=== PATIENT | female | born 1935 | race Caucasian/White ===

== ENCOUNTER → 2020-08-20 | Outpatient (CLI) | payer MEDICARE ==
[~2020-08-20] MED LIST: ASPI-1197 PO; CETI10TA57 PO; CLON-465 PO; CLOP75TA14 PO; DIPERA PO; EZET10TA13 PO; FERR-82 PO; FOLI1TAB85 PO; FURO20TA4 PO; HYDR-4153 PO; INSU100I3 SQ; INSU200I4 SQ; Isosorbide Mononitrate PO; LEVO500T2 PO; METO100T14 PO; OMEP40CA13 PO; PROC5TAB12 PO; SIMV-43 PO; [UNRECOGNIZED DRUG - OTHER] PO; [UNRECOGNIZED DRUG - OTHER] PO
== END | disposition home or self-care (01) ==
LOC: SHCH 09:59
PROVIDERS: ATTEND Internal Medicine Cardiovascular Disease
DX: I07.1 Rheumatic tricuspid insufficiency (principal); I25.10 Atherosclerotic heart disease of native coronary artery without angina pectoris; I87.2 Venous insufficiency (chronic) (peripheral); E66.9 Obesity, unspecified; E78.5 Hyperlipidemia, unspecified; E11.9 Type 2 diabetes mellitus without complications; I27.20 Pulmonary hypertension, unspecified
CPT/HCPCS: 93306; 93356; 93970

== ENCOUNTER → 2021-01-15 | Outpatient (CLI) | payer MEDICARE ==
[~2021-01-15] MED LIST changes: -OMEP40CA13 PO; +OMEP40CA21 PO
== END | disposition home or self-care (01) ==
LOC: SHCH 11:25
PROVIDERS: ATTEND Internal Medicine Cardiovascular Disease
DX: I65.23 Occlusion and stenosis of bilateral carotid arteries (principal)
CPT/HCPCS: 93880

== ENCOUNTER 2021-06-03 11:11 | Inpatient (IN) | payer MEDICARE ==
[~2021-06-03] VITALS: Ht 154.9 cm; Wt 63.9 kg
[2021-06-03 11:32] LABS: BASOPHILS % (AUTO) 0.3 % (0.0-5.0); HEMATOCRIT 33.4 % (36-48); LYMPHOCYTES % (AUTO) 21.9 % (21.0-51.0); MEAN CORPUSCULAR HGB CONC 31.7 g/dL (32.0-36.0); MEAN CORPUSCULAR VOLUME 94.6 fL (79-99); MONOCYTES % (AUTO) 7.2 % (3.0-13.0); PLATELET COUNT (AUTO) 231 K/uL (130-400); RED BLOOD CELL COUNT(AUTO) 3.53 MIL/uL (4.00-5.50); RED CELL DISTRIBUTION WIDTH 13.2 % (11.0-15.5)
[2021-06-03 11:40] LABS: CREATININE 4.4 mg/dL (0.5-1.5); POTASSIUM 3.8 mmol/L (3.5-5.1)
[2021-06-03 11:45] LABS: ALBUMIN 3.4 g/dL (3.5-5.0); BILIRUBIN,TOTAL 0.4 mg/dL (0.2-1.0)
[2021-06-03 12:07] LABS: INR 1.03 (0.85-1.15); PROTHROMBIN TIME 11.2 SEC (9.6-11.6)
[2021-06-03 14:00] LABS: MAGNESIUM 2.3 mg/dL (1.80-2.40)
[2021-06-03] MEDS ORDERED: DEXTROSE 50%-WATER 50 ML DISP.SYRIN IV PRN (16:00)
[2021-06-03] MEDS ORDERED: ONDANSETRON 4MG INJ IVP PRN (16:00)
[2021-06-03] MEDS ORDERED: ACETAMINOPHEN 325 MG TAB PO PRN (16:00)
[2021-06-03] MEDS ORDERED: GLUCAGON 1MG KIT 1 MG ML IM PRN (16:00)
[2021-06-03] MEDS: INSULIN HUMULIN R 100 UNIT/ML 3ML SQ SCH ×2 (18:45→21:27)
[2021-06-04 05:15] LABS: BASOPHILS % (AUTO) 0.5 % (0.0-5.0); HEMATOCRIT 33.2 % (36-48); LYMPHOCYTES % (AUTO) 25.3 % (21.0-51.0); MEAN CORPUSCULAR HEMOGLOBIN 30.1 pg (27.0-33.0); MEAN CORPUSCULAR HGB CONC 32.5 g/dL (32.0-36.0); MEAN CORPUSCULAR VOLUME 92.5 fL (79-99); MONOCYTES % (AUTO) 10.1 % (3.0-13.0); NEUTROPHILS % (AUTO) 59.6 % (40.0-77.0); PLATELET COUNT (AUTO) 188 K/uL (130-400); RED BLOOD CELL COUNT(AUTO) 3.59 MIL/uL (4.00-5.50); WHITE BLOOD COUNT (AUTO) 8.7 K/uL (4.8-10.8)
[2021-06-04 05:27] LABS: ALBUMIN 3.3 g/dL (3.5-5.0); BILIRUBIN,TOTAL 0.4 mg/dL (0.2-1.0); CREATININE 3.9 mg/dL (0.5-1.5); POTASSIUM 3.6 mmol/L (3.5-5.1); TOTAL PROTEIN, SERUM 6.9 g/dL (6.0-8.3)
[2021-06-04] MEDS: INSULIN HUMULIN R 100 UNIT/ML 3ML SQ SCH ×4 (07:30→21:54)
[2021-06-04] MEDS ORDERED: PANTOPRAZOLE 40 MG TAB DR PO SCH (09:00)
[2021-06-04] MEDS ORDERED: LABETALOL HCL 100 MG TABLET ONE (10:25)
[2021-06-04] MEDS: 0.9%NACL 1000ML 1,000 ML IV SCH ×4 (10:27→21:54)
[2021-06-04] MEDS: ENOXAPARIN SODIUM 30 MG/0.3 ML SQ SCH (10:27)
[2021-06-04] MEDS ORDERED: LABETALOL HCL 200 MG TABLET ONE (10:52)
[2021-06-04] MEDS: LABETALOL HCL 200 MG TABLET PO SCH ×2 (13:26→21:27)
[2021-06-04] MEDS ORDERED: AMLO5TAB5 PO (18:02)
[2021-06-04] MEDS ORDERED: INSU100I26 SQ (18:02)
[2021-06-04] MEDS ORDERED: CALC667C10 PO (18:04)
[2021-06-04] MEDS ORDERED: POTA10CA44 PO (18:12)
[2021-06-04] MEDS ORDERED: FURO40TA5 PO (18:12)
[2021-06-04] MEDS ORDERED: METO100T14 PO (18:12)
[2021-06-04] MEDS ORDERED: SIMV-43 PO (18:12)
[2021-06-04] MEDS ORDERED: FOLI1TAB85 PO (18:12)
[2021-06-04] MEDS ORDERED: NON-FORMULARY MEDICATION 1 EACH (Cetirizine HCl 10 MG) PO PRN (19:00)
[2021-06-04] MEDS ORDERED: CETIRIZINE HCL 5 MG TABLET PO PRN (19:30)
[2021-06-04] MEDS ORDERED: NON-FORMULARY MEDICATION 1 EACH (Ferrous Sulfate (Iron) 325 MG) PO SCH (21:00)
[2021-06-04 21:09] LABS: CREATININE,SERUM FOR CRCL 3.9 mg/dL (0.6-1.3)
[2021-06-04] MEDS: CALCIUM AC 667MG CAP PO SCH (21:27)
[2021-06-04] MEDS: FUROSEMIDE 40 MG TABLET PO SCH (21:27)
[2021-06-04] MEDS: FERROUS SULFATE 325 MG TABLET.DR PO SCH (21:27)
[2021-06-05] VITALS (7 sets, daily range): BP systolic 113–194; BP diastolic 47–81
[2021-06-05 00:12] LABS: CREATININE,URINE RANDOM 45 mg/dL (30-135); SODIUM,URINE RANDOM 70 mmol/l (40-220)
[2021-06-05 03:39] LABS: BASOPHILS % (AUTO) 0.6 % (0.0-5.0); EOSINOPHILS % (AUTO) 3.3 % (0.0-8.0); HEMATOCRIT 28.9 % (36-48); LYMPHOCYTES % (AUTO) 23.4 % (21.0-51.0); MEAN CORPUSCULAR HEMOGLOBIN 30.2 pg (27.0-33.0); MEAN CORPUSCULAR HGB CONC 31.5 g/dL (32.0-36.0); NEUTROPHILS % (AUTO) 63.2 % (40.0-77.0); PLATELET COUNT (AUTO) 192 K/uL (130-400); RED BLOOD CELL COUNT(AUTO) 3.01 MIL/uL (4.00-5.50); WHITE BLOOD COUNT (AUTO) 8.2 K/uL (4.8-10.8)
[2021-06-05 03:49] LABS: CREATININE 3.8 mg/dL (0.5-1.5); POTASSIUM 3.3 mmol/L (3.5-5.1)
[2021-06-05] MEDS: 0.9%NACL 1000ML 1,000 ML IV SCH ×3 (05:16→21:30)
[2021-06-05] MEDS: INSULIN HUMULIN R 100 UNIT/ML 3ML SQ SCH ×4 (07:30→21:41)
[2021-06-05] MEDS ORDERED: NON-FORMULARY MEDICATION 1 EACH (Potassium Chloride 10 MEQ) PO SCH (08:00)
[2021-06-05] MEDS ORDERED: ISOSORBIDE MONONITRATE 30 MG PO SCH (09:00)
[2021-06-05] MEDS ORDERED: NON-FORMULARY MEDICATION 1 EACH (Vit B Cmplx 3/FA/Vit C/Biotin (Rena-Vite Rx Tablet) 1 EAC PO SCH (09:00)
[2021-06-05] MEDS ORDERED: NON-FORMULARY MEDICATION 1 EACH (Omeprazole 40 MG) PO SCH (09:00)
[2021-06-05] MEDS: ENOXAPARIN SODIUM 30 MG/0.3 ML SQ SCH (09:34)
[2021-06-05] MEDS: CLOPIDOGREL 75MG TAB PO SCH (09:35)
[2021-06-05] MEDS: CALCIUM AC 667MG CAP PO SCH ×3 (09:35→21:30)
[2021-06-05] MEDS: FUROSEMIDE 40 MG TABLET PO SCH ×2 (09:36→21:29)
[2021-06-05] MEDS: Vitamin B Complex/Vit C/Folic Acid PO SCH (09:37)
[2021-06-05] MEDS: LABETALOL HCL 200 MG TABLET PO SCH ×3 (09:37→21:30)
[2021-06-05] MEDS: FERROUS SULFATE 325 MG TABLET.DR PO SCH ×2 (09:37→21:30)
[2021-06-05] MEDS: ASPIRIN 81MG CHEW TAB PO SCH (09:37)
[2021-06-05] MEDS: SIMVASTATIN 20 MG TABLET PO SCH (09:37)
[2021-06-05] MEDS: EZETIMIBE 10 MG TAB PO SCH (09:37)
[2021-06-05] MEDS: PANTOPRAZOLE 40 MG TAB DR PO SCH (09:38)
[2021-06-05] MEDS: ISOSORBIDE MONO 30MG SR TAB PO SCH (09:38)
[2021-06-05] MEDS: POTASSIUM CHLORIDE 10MEQ SR TAB PO SCH (09:40)
[2021-06-05 18:30] LABS: SODIUM TIMED URINE SEE SEPARATE REPORT; SODIUM URINE 24HR CALCULATION SEE SEPARATE REPORT; TOTAL VOLUME URINE 24HR SEE SEPARATE REPORT; URINE COLLECTION PERIOD SEE SEPARATE REPORT
[2021-06-06 03:16] VITALS: BP 186/67
[2021-06-06] MEDS: HYDRALAZINE 20MG/ML VIAL IV PRN (05:00)
[2021-06-06] MEDS: INSULIN HUMULIN R 100 UNIT/ML 3ML SQ SCH ×4 (06:23→20:47)
[2021-06-06] MEDS: PANTOPRAZOLE 40 MG TAB DR PO SCH (07:35)
[2021-06-06] MEDS: 0.9%NACL 1000ML 1,000 ML IV SCH ×4 (07:36→20:44)
[2021-06-06 08:00] VITALS: BP 140/61
[2021-06-06] MEDS: FUROSEMIDE 40 MG TABLET PO SCH ×2 (10:21→20:43)
[2021-06-06] MEDS: CLOPIDOGREL 75MG TAB PO SCH (10:21)
[2021-06-06] MEDS: EZETIMIBE 10 MG TAB PO SCH (10:21)
[2021-06-06] MEDS: ASPIRIN 81MG CHEW TAB PO SCH (10:21)
[2021-06-06] MEDS: FERROUS SULFATE 325 MG TABLET.DR PO SCH ×2 (10:21→20:43)
[2021-06-06] MEDS: ISOSORBIDE MONO 30MG SR TAB PO SCH (10:21)
[2021-06-06] MEDS: ENOXAPARIN SODIUM 30 MG/0.3 ML SQ SCH (10:22)
[2021-06-06] MEDS: SIMVASTATIN 20 MG TABLET PO SCH (10:22)
[2021-06-06] MEDS: Vitamin B Complex/Vit C/Folic Acid PO SCH (10:22)
[2021-06-06] MEDS: LABETALOL HCL 200 MG TABLET PO SCH ×3 (10:26→20:43)
[2021-06-06] MEDS: CALCIUM AC 667MG CAP PO SCH ×3 (10:27→17:17)
[2021-06-06 10:31] LABS: CREATININE 3.1 mg/dL (0.5-1.5); POTASSIUM 3.8 mmol/L (3.5-5.1)
[2021-06-06] MEDS: POTASSIUM CHLORIDE 10MEQ SR TAB PO SCH (10:41)
[2021-06-06 12:00] VITALS: BP 121/64
[2021-06-06 16:00] VITALS: BP 139/70
[2021-06-06 20:24] VITALS: BP 183/70
[2021-06-07 00:32] VITALS: BP 127/73
[2021-06-07] MEDS: 0.9%NACL 1000ML 1,000 ML IV SCH ×3 (02:45→10:45)
[2021-06-07 04:32] VITALS: BP 192/79
[2021-06-07] MEDS: HYDRALAZINE 20MG/ML VIAL IV PRN (04:47)
[2021-06-07] MEDS: PANTOPRAZOLE 40 MG TAB DR PO SCH (07:53)
[2021-06-07] MEDS: POTASSIUM CHLORIDE 10MEQ SR TAB PO SCH (07:54)
[2021-06-07] MEDS: FERROUS SULFATE 325 MG TABLET.DR PO SCH ×2 (07:55→20:21)
[2021-06-07] MEDS: ISOSORBIDE MONO 30MG SR TAB PO SCH (07:55)
[2021-06-07] MEDS: FUROSEMIDE 40 MG TABLET PO SCH ×2 (07:55→20:22)
[2021-06-07] MEDS: ASPIRIN 81MG CHEW TAB PO SCH (07:55)
[2021-06-07] MEDS: Vitamin B Complex/Vit C/Folic Acid PO SCH (07:55)
[2021-06-07] MEDS: CALCIUM AC 667MG CAP PO SCH ×3 (07:55→16:26)
[2021-06-07] MEDS: SIMVASTATIN 20 MG TABLET PO SCH (07:56)
[2021-06-07] MEDS: CLOPIDOGREL 75MG TAB PO SCH (07:56)
[2021-06-07] MEDS: ENOXAPARIN SODIUM 30 MG/0.3 ML SQ SCH (07:56)
[2021-06-07] MEDS: EZETIMIBE 10 MG TAB PO SCH (07:56)
[2021-06-07] MEDS: LABETALOL HCL 200 MG TABLET PO SCH ×3 (07:58→20:23)
[2021-06-07 08:00] VITALS: BP 164/63
[2021-06-07] MEDS: INSULIN HUMULIN R 100 UNIT/ML 3ML SQ SCH ×3 (11:55→21:21)
[2021-06-07 12:00] VITALS: BP 134/81
[2021-06-07 16:00] VITALS: BP 163/66
[2021-06-07 17:05] LABS: CREATININE 2.9 mg/dL (0.5-1.5); POTASSIUM 3.9 mmol/L (3.5-5.1)
[2021-06-07 20:24] VITALS: BP 158/77
[2021-06-08] VITALS: BP 177/59
[2021-06-08 04:00] VITALS: BP 185/71
[2021-06-08] MEDS: HYDRALAZINE 20MG/ML VIAL IV PRN (04:11)
[2021-06-08] MEDS: INSULIN HUMULIN R 100 UNIT/ML 3ML SQ SCH ×3 (06:32→16:42)
[2021-06-08 08:00] VITALS: BP 144/58
[2021-06-08] MEDS: Vitamin B Complex/Vit C/Folic Acid PO SCH (08:01)
[2021-06-08] MEDS: ASPIRIN 81MG CHEW TAB PO SCH (08:01)
[2021-06-08] MEDS: FERROUS SULFATE 325 MG TABLET.DR PO SCH (08:01)
[2021-06-08] MEDS: PANTOPRAZOLE 40 MG TAB DR PO SCH (08:01)
[2021-06-08] MEDS: CALCIUM AC 667MG CAP PO SCH ×3 (08:02→16:42)
[2021-06-08] MEDS: SIMVASTATIN 20 MG TABLET PO SCH (08:02)
[2021-06-08] MEDS: CLOPIDOGREL 75MG TAB PO SCH (08:02)
[2021-06-08] MEDS: ISOSORBIDE MONO 30MG SR TAB PO SCH (08:02)
[2021-06-08] MEDS: FUROSEMIDE 40 MG TABLET PO SCH (08:02)
[2021-06-08] MEDS: EZETIMIBE 10 MG TAB PO SCH (08:02)
[2021-06-08] MEDS: POTASSIUM CHLORIDE 10MEQ SR TAB PO SCH (08:03)
[2021-06-08] MEDS: ENOXAPARIN SODIUM 30 MG/0.3 ML SQ SCH (08:03)
[2021-06-08] MEDS: LABETALOL HCL 200 MG TABLET PO SCH ×2 (08:04→13:19)
[2021-06-08 12:00] VITALS: BP 134/59
[2021-06-08] MEDS ORDERED: Calcium Ac 667MG Cap PO (15:42)
[2021-06-08] MEDS ORDERED: POTA-10 PO (15:42)
[2021-06-08] MEDS ORDERED: LABE200T5 PO (15:42)
[2021-06-08] MEDS ORDERED: FURO40TA7 PO (15:42)
[2021-06-08] MEDS ORDERED: CLOP75TA14 PO (15:42)
[2021-06-08] MEDS ORDERED: SIMV-43 PO (15:42)
[2021-06-08] MEDS ORDERED: FERR324T4 PO (15:42)
[2021-06-08] MEDS ORDERED: EZET10TA13 PO (15:42)
[2021-06-08] MEDS ORDERED: Folic Acid/Vitamin B Comp W-C PO (15:42)
[2021-06-08 16:00] VITALS: BP 165/69
[2021-06-08 19:00] LABS: CREATININE 3.3 mg/dL (0.5-1.5); POTASSIUM 4.2 mmol/L (3.5-5.1)
[2021-06-08 19:03] LABS: PHOSPHORUS 2.1 mg/dL (2.5-4.9)
[2021-07-17] MEDS ORDERED: CLON0.1T PO (11:43)
[2021-07-17] MEDS ORDERED: HYDR-4153 PO (11:43)
[2021-07-17] MEDS ORDERED: SIMV-43 PO (11:43)
[2021-07-17] MEDS ORDERED: EZET10TA13 PO (11:43)
[2021-07-17] MEDS ORDERED: ISOS30TA11 PO (11:43)
== END 2021-06-08 19:01 | disposition home health service (06) | DRG 640 ==
LOC: EDH 11:11 → EDHIP 13:23 → 3CH 06-04 22:41
PROVIDERS: ADMIT Hospitalist; ATTEND Hospitalist
DX: E86.0 Dehydration (principal); N17.0 Acute kidney failure with tubular necrosis; I13.0 Hypertensive heart and chronic kidney disease with heart failure and stage 1 through stage 4 chronic kidney disease, or unspecified chronic kidney disease; N18.4 Chronic kidney disease, stage 4 (severe); S00.12XA Contusion of left eyelid and periocular area, initial encounter; E11.22 Type 2 diabetes mellitus with diabetic chronic kidney disease; E11.65 Type 2 diabetes mellitus with hyperglycemia; D63.8 Anemia in other chronic diseases classified elsewhere; E78.00 Pure hypercholesterolemia, unspecified; E78.5 Hyperlipidemia, unspecified; E83.52 Hypercalcemia; F03.90 Unspecified dementia, unspecified severity, without behavioral disturbance, psychotic disturbance, mood disturbance, and anxiety; G47.00 Insomnia, unspecified; G89.29 Other chronic pain; I07.1 Rheumatic tricuspid insufficiency; I25.10 Atherosclerotic heart disease of native coronary artery without angina pectoris; I50.9 Heart failure, unspecified; I95.1 Orthostatic hypotension; J32.0 Chronic maxillary sinusitis; R29.6 Repeated falls; W18.30XA Fall on same level, unspecified, initial encounter; Y93.89 Activity, other specified; Y92.89 Other specified places as the place of occurrence of the external cause; Y99.8 Other external cause status; Z88.5 Allergy status to narcotic agent; Z88.2 Allergy status to sulfonamides; Z88.8 Allergy status to other drugs, medicaments and biological substances; Z91.041 Radiographic dye allergy status; Z95.1 Presence of aortocoronary bypass graft; Z86.73 Personal history of transient ischemic attack (TIA), and cerebral infarction without residual deficits; Z83.3 Family history of diabetes mellitus; Z82.49 Family history of ischemic heart disease and other diseases of the circulatory system
CPT/HCPCS: 36415; 70450; 70486; 71045; 72125; 76770; 80048; 80053; 80069; 82330; 82550; 82570; 82575; 82948; 83735; 84300; 84484; 85025; 85610; 85730; 93005; 93306; 93356; 93880; 97039; G0378; J0360; J1650; J1815; J7030